=== PATIENT | male | born 1985 | race Caucasian/White ===

== ENCOUNTER 2018-08-15 12:03 | Emergency (ER) | payer BC ==
--- NOTE | 2018-08-15 12:14 | PDOC ---
History of Present Illness - General Chief Complaint: Bite Stated Complaint: DOG BITE LEFT THUMB Time Seen by Provider: 08/15/18 12:06 History Source: Patient Exam Limitations: No Limitations - History of Present Illness Initial Comments: 08/15/18 12:07 This is a 33 YOM who is [id number] and works in construction who p/w dog bite to the left thumb (DIP joint) by his own dog who is known to be fully vaccinated including rabies. He states that his two pitbulls got into a fight last night and he was pulling them apart when one bit him in the left thumb at about 10 pm. He had worsened pain and swelling to the thumb this morning and the pain has spread up to the thumb MCP (patient points). He noted a small amount of purulent drainage from one of the two puncture wounds. He cannot remember the date of his last tetanus vaccination but notes he did get all of his vaccinations in youth, and on review of [facility] records he had a laceration repair in 2010 at which time the patient notes he did have an injection. The patient denies any f/c/n/v/d/c, streaking redness to the skin, purulent drainage from the thumb wounds, bleeding, or other symptoms. Past History - Past Medical History Allergies/Adverse Reactions: Allergies Allergy/AdvReac Type Severity Reaction Status Date / Time No Known Allergies Allergy Verified 08/15/18 12:03 Home Medications: Ambulatory Orders Cephalexin [Keflex] 500 mg PO TID #21 capsule 08/15/18 Sulfamethoxazole/Trimethoprim [Bactrim Ds -] 1 tab PO BID #14 tablet 08/15/18 Review of Systems - Review of Systems Able to Perform ROS?: Yes Constitutional: No: Chills, Fever, Unexplained wgt Loss HEENTM: No: Nose Congestion, Throat Pain Respiratory: No: Cough, Shortness of Breath Cardiac (ROS): No: Chest Pain, Palpitations ABD/GI: No: Constipated, Diarrhea, Nausea, Vomiting : No: Burning, Dysuria Musculoskeletal: Yes: Other (left thumb pain). No: Back Pain, Neck Pain Integumentary: Yes: Lesions (left thumb dog bite wound). No: Bruising, Rash Neurological: No: Headache, Numbness, Tingling, Weakness, Dizziness Endocrine: No: Unexplained Weight Gain, Unexplained Weight Loss *Physical Exam - Vital Signs Initial Vital Signs Temp Pulse Resp BP Pulse Ox 98.4 F 83 20 132/81 99 08/15/18 12:03 08/15/18 12:03 08/15/18 12:03 08/15/18 12:03 08/15/18 12:03 08/15/18 12:09 GENERAL: nontoxic and well-appearing, nourished, A/Ox4, no acute distress, speaking in full sentences, answers questions appropriately, appears comfortable , guarding left thumb and avoiding ROM of the thumb. HEENT: PERRLA, EOMI, moist mucous membranes, no posterior pharyngeal erythema, no tonsillar swelling or exudates, no cervical lymphadenopathy NECK: No midline ttp, no spinal stepoff or deformity, full ROM, supple CARDIOVASCULAR: Regular rate and rhythm, normal S1S2, MGR, radial and DP pulses 2+ and symmetric, capillary refill <2 seconds, extremities warm and well- perfused Chest wall: Normal appearance, no rash, no bruising, no costal stepoff or deformity, nontender to compression LUNGS/RESPIRATORY: No respiratory distress, normal and symmetric chest movements during respirations, lungs CTA bilaterally, equal breath sounds, no cyanosis, no nail clubbing GI/ABDOMEN: Normal symmetric appearance, normoactive bowel sounds, soft, no tenderness to palpation, no midline pulsatile masses, no palpated organomegaly : No CVA tenderness, normal external appearance, no lesions BACK: No midline ttp or stepoff or deformity of thoracic or lumbar spine EXTREMITIES: Left thumb significant finger pad swelling with possible induration /fluctuance, left thumb DIP with mild swelling overlying extensor surface and also with mild ttp and mild tenderness on ROM, left thumb MCP with mild swelling overlying knuckle and with decreased active ROM, passive ROM causes significant pain to the knuckle, no streaking erythema, distal pulses 2+, warm and well-perfused, no LE edema SKIN: Warm and dry, no pallor, no jaundice, no bruising. NEUROLOGICAL: GCS 15, CN II-XII grossly intact, ambulating with normal gait, moving all extremities, 5/5 strength proximally and distally, no facial droop, no decreased sensation ED Treatment Course - LABORATORY CBC & Chemistry Diagram: 08/15/18 12:55 08/15/18 12:55 Medical Decision Making - Medical Decision Making 08/15/18 12:10 Pt presents with dog bite by his own dog who is known to be fully vaccinated. Tetanus status: UTD as of 2010. Initial Vital Signs Temp Pulse Resp BP Pulse Ox 98.4 F 83 20 132/81 99 08/15/18 12:03 08/15/18 12:03 08/15/18 12:03 08/15/18 12:03 08/15/18 12:03 Exam: As noted in Physical Exam section. W/U and Tx ordered: As reported below. 08/15/18 12:22 FINGER(S) LEFT [RAD] Stat 08/15/18 12:23 IV Insert NOW Zosyn (pipe/tazo) 3.375GM - ONCE (1X ONLY) Piperacillin/Tazob 3.375 gm [Zosyn - ] 3.375 gm Dextrose 5%-Water - [D5w 50 ml Mini Bag] 50 ml IVPB ONCE 08/15/18 12:27 CBC WITH DIFFERENTIAL Stat COMP METABOLIC PANEL Stat CRP [C-REACTIVE PROTEIN] Stat ERYTHROCYTE SEDIMENTATION RATE Stat 08/15/18 12:30 Saline Lock, Insert ONCE Laboratory Tests 08/15/18 08/15/18 12:55 12:55 WBC 8.1 RBC 4.88 Hgb 14.5 Hct 44.0 MCV 90.2 MCH 29.7 MCHC 32.9 RDW 13.1 Plt Count 263 MPV 8.6 Absolute Neuts (auto) 5.6 Neutrophils % 68.6 Lymphocytes % 18.9 Monocytes % 10.4 H Eosinophils % 1.4 Basophils % 0.7 ESR 2 Sodium 137 Potassium 3.7 Chloride 104 Carbon Dioxide 25 Anion Gap 8 BUN 9 Creatinine 0.6 Creat Clearance w eGFR > 60 Random Glucose 99 Calcium 9.1 Total Bilirubin 1.0 AST 16 ALT 16 Alkaline Phosphatase 92 C-Reactive Protein 0.4 H Total Protein 7.0 Albumin 4.4 XR Left Thumb: Left thumb pain and swelling, status post dog bite. Technique: AP , lateral and oblique views of the left thumb. Comparison: None available. Findings: There is no definite acute fracture in the left thumb. Alignment is anatomic. Joint spaces are maintained with no significant arthritic change. There is soft tissue irregularity overlying the first interphalangeal joint with swelling/edema. Osseous mineralization is within normal. Impression: No evidence of acute fracture or dislocation in the left thumb. The patient states he does not want to stay for admission. He is highly encouraged to come back for a re-check tomorrow in the ED. He also is encouraged to f/u with Dr. Mattson and is given referral information. 08/15/18 14:[address] Mattson who recommends Bactrim and Keflex since patient refuses admission. He will see the patient in the office on Friday. Reassessment: Patient's pain is improved, states wants to go home. The Pt is appropriate for discharge with close follow up. He is encouraged to come back to the ED tomorrow for re-check if any change for the worse, or sooner. They are comfortable with this plan and will follow up with their primary care provider in 1-3 days. They will go to Dr. Mattson on Friday for further f/u as well. E-rx has been sent to the patient's pharmacy for Bactrim and Keflex. He is aware he should take them simultaneously, exactly as prescribed, and finish the whole course. Specific return precautions are discussed and they will come back to the ER if necessary. *DC/Admit/Observation/Transfer Diagnosis at time of Disposition: Wound infection Dog bite Qualifiers: Encounter type: initial encounter Qualified Code(s): W54.0XXA - Bitten by dog, initial encounter - Discharge Dispostion Disposition: HOME Condition at time of disposition: Stable Decision to Admit order: No - Prescriptions Prescriptions: Cephalexin [Keflex] 500 mg PO TID #21 capsule Sulfamethoxazole/Trimethoprim [Bactrim Ds -] 1 tab PO BID #14 tablet - Referrals Referrals: Marlo Mattson MD [Staff Physician] - - Patient Instructions Printed Discharge Instructions: DI for Dog Bite Additional Instructions: YOU WERE SEEN IN THE ER FOR A DOG BITE BY YOUR OWN DOG, WHO YOU KNOW TO BE FULLY VACCINATED. WE DID AN XRAY AND LABORATORY WORK WHICH WERE NOT CONCERNING. BECAUSE YOUR DOG IS VACCINATED, YOU DO NOT NEED TO HAVE ANY RABIES VACCINES. YOUR TETANUS VACCINATION WAS UP TO DATE OF 2010. HOWEVER, YOUR THUMB APPEARS RED AND SWOLLEN AND WE ARE CONCERNED ABOUT POSSIBILITY OF INFECTION, SO WE ARE GIVING YOU ANTIBIOTICS. WE GAVE YOU AN ANTIBIOTIC THROUGH THE IV (CALLED ZOSYN) HERE IN THE ER AND WE ARE SENDING ELECTRONIC PRESCRIPTIONS TO YOUR PHARMACY FOR TWO ANTIBIOTICS TO TAKE AT HOME. IT IS EXTREMELY IMPORTANT THAT YOU TAKE BOTH OF THESE ANTIBIOTICS EXACTLY PRESCRIBED AND THAT YOU FINISH THE ENTIRE COURSES OF THESE ANTIOBIOTICS, WHETHER OR NOT YOUR THUMB FEELS BETTER. PLEASE FOLLOW UP WITH OUR HAND SURGEON, DR. MATTSON. WE ARE GIVING YOU REFERRAL INFORMATION IN THIS INFORMATION PACKET.. CALL THEIR CLINIC [facility] ON Friday, TELL THEM YOU WERE SEEN IN THE ER FOR A DOG BITE AND THAT YOU NEED AN APPOINTMENT FOR FRIDAY. DR. MATTSON' OFFICE EXPECTS A CALL FROM YOU, WE SPOKE WITH HIM TODAY. PLEASE COME BACK TO THE ER AT ANY TIME (24 HOURS A DAY) FOR ANY NEW OR WORSENING SYMPTOMS, ESPECIALLY FEVER, CHILLS, WORSENING PAIN/ SWELLING TO THE BITE WOUND OR NEARBY THE BITE WOUND, WORSENING PUS DRAINAGE, WORSENING REDNESS OF THE SKIN, OR REDNESS THAT COMES IN STREAKS FROM THE WOUND. IF YOU ARE HAVING SEVERE OR LIFE THREATENING SYMPTOMS, OR SYMPTOMS THAT MAKE IT UNSAFE TO DRIVE OR HAVE SOMEONE DRIVE YOU, PLEASE CALL 911. - Post Discharge Activity
[2018-08-15 12:22] VITALS: BP 132/81; PULSE 83; TEMP 98.4; BMI 29.2
[2018-08-15] MEDS ORDERED: SODIUM CHLORIDE 0.9% 500 ML INFUS.BAG IV ONE (12:23)
[2018-08-15] MEDS ORDERED: PIPERACILLIN/TAZOB 3.375 GM 3.375 GM in DEXTROSE 5%-WATER - 50 ML IVPB ONE (12:23)
[2018-08-15] MEDS ORDERED: ACETAMINOPHEN 1000 MG/100 ML VIAL (NON FORMULARY) IVPB ONE (12:23)
[2018-08-15] MEDS ORDERED: ACETAMINOPHEN INJECTION 100 ML IVPB ONE (12:52)
[2018-08-15] MEDS ORDERED: PIPERACILLIN/TAZOBACTAM 3.375 GM VIAL IVPB ONE (12:52)
[2018-08-15 13:17] LABS: BASO % 0.7 % (0-2.0); EOS % 1.4 % (0-4.5); HEMOGLOBIN 14.5 GM/dl (11.7-16.9); LYMPH % 18.9 % (8-40); MCH 29.7 pg (25.7-33.7); MCHC 32.9 g/dl (32.0-35.9); MEAN CELL VOLUME 90.2 fl (80-96); MEAN PLT VOLUME 8.6 fl (7.5-11.1); MONO % 10.4 % (3.8-10.2); NEUT % 68.6 % (42.8-82.8); PLATELET COUNT 263 K/MM3 (134-434); RBC 4.88 M/mm3 (4.00-5.60); RDW 13.1 % (11.9-15.9); WHITE BLOOD COUNT 8.1 K/mm3 (4.0-10.8)
[2018-08-15 13:40] LABS: ALBUMIN 4.4 g/dl (3.5-5.0); ALK PHOS 92 U/L (32-92); ANION GAP 8 MMOL/L (8-16); BLOOD UREA NITROGEN 9 mg/dl (7-18); CALCIUM 9.1 mg/dl (8.4-10.2); CHLORIDE 104 mmol/L (98-107); CO2 25 mmol/L (22-28); CREATININE 0.6 mg/dl (0.6-1.3); GLUCOSE,RANDOM 99 mg/dl (74-106); POTASSIUM 3.7 mmol/L (3.5-5.1); SGOT/AST 16 U/L (10-42); SGPT/ALT 16 U/L (10-40); SODIUM 137 mmol/L (136-145)
[2018-08-15 14:02] LABS: ERYTHROCYTE SEDIMENTATION RATE 2 mm/hr (0-10)
--- NOTE | 2018-08-15 14:10 | PDOC ---
Attending Attestation - Resident Resident Name: Simpson,Cele - ED Attending Attestation I have performed the following: I have examined & evaluated the patient, The case was reviewed & discussed with the resident, I agree w/resident's findings & plan, Exceptions are as noted - HPI HPI: 08/15/18 14:07 33-year-old male no past medical history here today complaining of a dog bite to his left thumb. Patient states he was breaking up a fight between his dogs since he got bit on the thumb. Last night he did irrigated and went to bed on awakening this a.m. he noted pain and swelling of the left thumb he did have 2 puncture wounds right the IP joint redness and swelling was no extending up the thumb to the CMC joint. Patient denies any fevers or chills states his last tetanus was 2010 does have pain with range of motion of the hand no other current complaints states his dogs have been immunized and this was a provoked bite - Physicial Exam PE: 08/15/18 14:08 Awake alert no distress lungs are clear bilaterally heart is regular no murmurs rubs or gallops left upper extremity exam reveals a left thumb that is warm swollen and tender to palpation from the distal thumb to the CMC joint. There is pain with range of motion at the IP joint there is 2 distal puncture wounds one is which is draining some serous fluid there is tenderness along the palpation of the extensor sheath the wrist elbow and shoulder full range of motion no noted streaking - Medical Decision Making 08/15/18 14:10 Differential includes cellulitis, [place] is secondary to dog bite, underlying bony fracture or bony fragment from the dog's tooth. Plan x-ray of the left thumb labs we'll give IV antibiotics. Due to concern for Tynosinovitis was recommended the patient should stay in the hospital followed by evaluation by hand. However he is unable to stay therefore given 1 dose of IV antibiotics educated regarding the risks and benefits patient will go home is instructed to come back for close follow-up will be DC'd on Augmentin follow-up given for Dr. Madrid within 48 hours 08/15/18 14:11
== END 2018-08-15 14:34 | disposition home or self-care (01) ==
LOC: FER 12:03
PROC: 3E0337Z Introduction of Electrolytic and Water Balance Substance into Peripheral Vein, Percutaneous Approach (ICD-10-PCS; principal; 2018-08-15)
PROC: 3E03329 Introduction of Other Anti-infective into Peripheral Vein, Percutaneous Approach (ICD-10-PCS; 2018-08-15)
PROC: 3E033NZ Introduction of Analgesics, Hypnotics, Sedatives into Peripheral Vein, Percutaneous Approach (ICD-10-PCS; 2018-08-15)
DX: L08.9 Local infection of the skin and subcutaneous tissue, unspecified (principal); W54.0XXA Bitten by dog, initial encounter; Y93.89 Activity, other specified; Y92.009 Unspecified place in unspecified non-institutional (private) residence as the place of occurrence of the external cause
CPT/HCPCS: 36415; 73140-TC-LT-FY; 80053; 85025; 85651; 86140; 99284-25; J0131